=== PATIENT | male | born 1970 | race Caucasian/White ===

== ENCOUNTER 2025-01-18 16:34 | Inpatient (IN) | payer MEDICAID ==
[~2025-01-18] VITALS: Ht 182.9 cm; Wt 91.0 kg
[~2025-01-18 16:34] MED LIST: RISP2TAB76 PO
[2025-01-18] MEDS ORDERED: ZOLPIDEM TARTRATE 10 MG TABLET PO PRN (17:45)
[2025-01-18 17:49] LABS: BASOPHILS % (AUTO) 0.4 % (0.0-2.0); EOSINOPHILS % (AUTO) 0.2 % (1.0-6.0); HEMATOCRIT 49.5 % (41-53); HEMOGLOBIN 16.8 g/dL (13.5-17.5); LYMPHOCYTES # (AUTO) 1.3 K/uL (1.0-4.8); LYMPHOCYTES % (AUTO) 16.4 % (22.0-44.0); MEAN CORPUSCULAR HEMOGLOBIN 30.4 pg (26.0-34.0); MEAN CORPUSCULAR VOLUME 89 fL (80-100); MONOCYTES # (AUTO) 0.7 K/uL (0.1-1.0); MONOCYTES % (AUTO) 8.7 % (2.0-9.0); NEUTROPHILS # (AUTO) 5.9 K/uL (1.8-7.7); NEUTROPHILS % (AUTO) 74.3 % (40.0-70.0); PLATELET COUNT (AUTO) 384 K/uL (150-450); RED BLOOD CELL COUNT(AUTO) 5.54 MIL/uL (4.50-5.90); RED CELL DISTRIBUTION WIDTH 13.2 % (11.5-14.5); WHITE BLOOD COUNT (AUTO) 7.9 K/uL (4.5-11.0)
[2025-01-18 17:56] LABS: ALCOHOL, URINE DRUG SCREEN NEGATIVE (NEGATIVE); AMPHET/METH SCREEN,URINE POSITIVE (NEGATIVE); BARBITURATE SCREEN, URINE NEGATIVE (NEGATIVE); BENZODIAZEPINES SCREEN,URINE NEGATIVE (NEGATIVE); CANNABINOID SCREEN,URINE NEGATIVE (NEGATIVE); COCAINE SCREEN,URINE NEGATIVE (NEGATIVE); METHADONE SCREEN, URINE NEGATIVE (NEGATIVE); OPIATE SCREEN,URINE NEGATIVE (NEGATIVE); PHENCYCLIDINE SCREEN,URINE NEGATIVE (NEGATIVE)
[2025-01-18 17:56] LABS: ANION GAP 6 mmol/L (8-16); CALCIUM, TOTAL 9.1 mg/dL (8.8-10.5); CARBON DIOXIDE 31 mmol/L (22-29); CHLORIDE 95 mmol/L (98-107); CREATININE 0.86 mg/dL (0.60-1.30); GLOMERULAR FILTR. RATE CALC > 60 mL/min (>60); GLUCOSE,RANDOM 381 mg/dL (70-110); POTASSIUM 4.5 mmol/L (3.5-5.1); SODIUM SERUM 132 mmol/L (136-145); UREA NITROGEN, BLOOD 15 mg/dL (7-18)
[2025-01-18 17:57] LABS: COVID AG,FIA SOURCE NASAL SWAB
[2025-01-18 18:10] LABS: ALCOHOL, BLOOD (SERUM) < 3 mg/dL (0-10)
[2025-01-18 18:15] LABS: SARS-COV2 (COVID) ANTIGEN,FIA Negative (Negative)
[2025-01-18] MEDS: LORazepam 2 MG TABLET PO PRN (20:53)
[2025-01-18] MEDS: HALOPERIDOL 5 MG TABLET PO PRN (20:53)
[2025-01-19] MEDS ORDERED: INFLUENZA VIRUS VACCINE TVS (6MO+) 2024-25/PF 45 MCG/0.5 ML SYRINGE IM. ONE (00:45)
[2025-01-19] MEDS ORDERED: OMEPRAZOLE 20 MG CAPSULE PO PRN (06:00)
[2025-01-19] MEDS ORDERED: LOPERAMIDE HCL 2 MG CAPSULE PO PRN (06:00)
[2025-01-19] MEDS ORDERED: CloNIDine HCL 0.1 MG TABLET PO PRN (06:00)
[2025-01-19] MEDS ORDERED: ACETAMINOPHEN 325 MG TABLET PO PRN (06:00)
[2025-01-19] MEDS ORDERED: MAGNESIUM HYDROXIDE SUSPENSION 30 ML UDCUP PO PRN (06:00)
[2025-01-19] MEDS ORDERED: MAG HYDROX/ALUMINUM HYD/SIMETH ES 30 ML SUSPENSION UDCUP PO PRN (06:00)
[2025-01-19] MEDS ORDERED: IBUPROFEN 600 MG TABLET PO PRN (06:00)
[2025-01-19] MEDS ORDERED: BACITRACIN 28 GM OINTMENT TP PRN (06:00)
[2025-01-19] MEDS ORDERED: PETROLATUM,WHITE 28 GM JELLY TP PRN (06:00)
[2025-01-19] MEDS ORDERED: ONDANSETRON 4 MG TABLET PO PRN (06:00)
[2025-01-19] MEDS ORDERED: ALBUTEROL SULFATE HFA 90 MCG/PUFF 8 GM INHALER IH PRN (06:00)
[2025-01-19] MEDS ORDERED: DOCUSATE SODIUM 100 MG CAPSULE PO PRN (06:00)
[2025-01-19] MEDS ORDERED: BENZOCAINE/MENTHOL [CEPACOL] LOZENGE PO PRN (06:00)
[2025-01-19] MEDS ORDERED: DEXTROSE 50%-WATER 25 GM/50 ML SYRINGE IVP PRN (06:45)
[2025-01-19] MEDS: INSULIN LISPRO 100 UNITS/ML SQ PRN (13:56)
[2025-01-19 14:16] LABS: GLUCOMETER DEV NAME(LOC) 3E.C; GLUCOSE,POINT OF CARE 351 MG/DL (70-110)
[2025-01-19 17:30] LABS: GLUCOMETER DEV NAME(LOC) 3E.C; GLUCOSE,POINT OF CARE 190 MG/DL (70-110)
[2025-01-19 20:32] VITALS: RESP 17
[2025-01-19 21:20] LABS: GLUCOMETER DEV NAME(LOC) 3E.C; GLUCOSE,POINT OF CARE 307 MG/DL (70-110)
[2025-01-20 06:55] LABS: GLUCOMETER DEV NAME(LOC) 3E.C; GLUCOSE,POINT OF CARE 257 MG/DL (70-110)
[2025-01-20 09:16] LABS: HEMOGLOBIN A1C 12.9 % (3.8-5.6)
[2025-01-20 09:28] LABS: CHOL/HDL RATIO 2.6 (4.2-7.3); THYROID STIMULATING HORMONE 0.65 uIU/mL (0.36-3.74)
[2025-01-20 11:26] VITALS: RESP 17
[2025-01-20 11:56] LABS: GLUCOMETER DEV NAME(LOC) 3E.C; GLUCOSE,POINT OF CARE 348 MG/DL (70-110)
[2025-01-20 20:47] VITALS: RESP 18
[2025-01-20 21:31] LABS: GLUCOMETER DEV NAME(LOC) 3E.C; GLUCOSE,POINT OF CARE 277 MG/DL (70-110)
[2025-01-21 06:30] LABS: GLUCOMETER DEV NAME(LOC) 3E.C; GLUCOSE,POINT OF CARE 258 MG/DL (70-110)
[2025-01-21 10:01] VITALS: BP 122/69; PULSE 88; RESP 18; TEMP 97.8; O2SAT 97
[2025-01-21 11:41] LABS: GLUCOMETER DEV NAME(LOC) 3E.C; GLUCOSE,POINT OF CARE 307 MG/DL (70-110)
[2025-01-21 16:55] LABS: GLUCOMETER DEV NAME(LOC) 3E.C; GLUCOSE,POINT OF CARE 354 MG/DL (70-110)
[2025-01-21 21:20] LABS: GLUCOMETER DEV NAME(LOC) 3E.C; GLUCOSE,POINT OF CARE 326 MG/DL (70-110)
[2025-01-22 06:40] LABS: GLUCOMETER DEV NAME(LOC) 3E.C; GLUCOSE,POINT OF CARE 309 MG/DL (70-110)
[2025-01-22 09:38] VITALS: BP 109/65; PULSE 75; RESP 19; TEMP 98.4; O2SAT 99
[2025-01-22 09:45] VITALS: BP 109/65; PULSE 75; RESP 18; TEMP 98.4; O2SAT 97
[2025-01-22 11:30] LABS: GLUCOMETER DEV NAME(LOC) 3E.C; GLUCOSE,POINT OF CARE 307 MG/DL (70-110)
[2025-01-22] MEDS ORDERED: METF-1211 PO (14:13)
[2025-01-22] MEDS ORDERED: MetFORMIN HCL 500 MG TABLET PO SCH (17:30)
== END 2025-01-22 15:35 | disposition home or self-care (01) | DRG 750 ==
LOC: EMS 16:34 → 3EC 22:33
PROVIDERS: ADMIT Psychiatry & Neurology Psychiatry; ATTEND Psychiatry & Neurology Psychiatry
DX: F25.9 Schizoaffective disorder, unspecified (principal); E11.65 Type 2 diabetes mellitus with hyperglycemia; F15.10 Other stimulant abuse, uncomplicated; Z20.822 Contact with and (suspected) exposure to COVID-19; F41.9 Anxiety disorder, unspecified; G47.00 Insomnia, unspecified; K59.00 Constipation, unspecified; Z79.84 Long term (current) use of oral hypoglycemic drugs
CPT/HCPCS: 80048; 80061; 80307; 82962; 83036; 84443; 85025; 99285; G0480